=== PATIENT | female | born 1995 | race Caucasian/White ===

== ENCOUNTER 2018-03-27 12:49 | Outpatient (CLI) | payer MEDICAID ==
[~2018-03-27] VITALS: Ht 162.6 cm; Wt 80.6 kg
[2018-03-27 13:09] VITALS: BP 120/59; PULSE 86; RESP 17; Ht 162.6 cm; Wt 80.6 kg
--- NOTE | 2018-03-27 14:02 | PN ---
Triage Information Date/Time Reason for visit: DFM Weeks of Gestation 30 weeks /Para Diabetes: none Hypertention: none Objective Vital Signs Date Temp Pulse Resp B/P (MAP) Pulse Ox O2 O2 Flow FiO2 Time Delivery Rate 03/27/18 98.1 86 17 120/59 13:09 (79) Heart Rate: 130's Heart Rate Comments Reactive Contractions: None Results/Medications Imaging Results BPP 10/13 CHELSEY 16 Disposition: Discharge Assessment/Plan While being monitored patient feels the baby move well. EDWIN ARMENTA MD Mar 27, 2018 14:02
--- NOTE | 2018-03-27 14:02 | TRIAGE ---
OB Triage Datetime Report Generated by CPN: 03/27/2018 14:02 Datetime: 03/27/2018 13:55 Labor Evaluation Pattern: Normal: <= 5 Contractions in 10 Minutes Resting Tone [place]: Relaxed Contraction Comments: no uc Heart Rate FHR Baseline Rate: 135 Monitor Mode: External US Variability: Moderate 6-25 bpm Accelerations: 15X15 Decelerations: None Category: Category I Pain Assessment Pain Presence: None/Denies Pain Type: N/A Datetime: 03/27/2018 13:06 Assessment Type: Triage Time of Arrival: 03/27/2018 12:42 EGA: 30.4 Arrived By: Ambulatory Arrived From: Home Chief Complaint: c/o decreased fm since last night 6pm Movement: Decreased Contractions: Denies/Absent Rupture of Membranes: Denies Vaginal Discharge: Denies Recent Sexual Intercouse: Denies Abdominal Trauma: Not Applicable Patient Complaints: Other Time Provider Notified: 03/27/2018 13:03 Provider Notified: Initial Plan: nst, bpp Maternal Assessment Level of Consciousness: Fully Conscious DTR's/Clonus: DTRs 2+; No Clonus Headache: Denies Blurred Vision: No Respiratory Effort: Unlabored; Regular Rhythm; Equal Expansion Breath Sounds, Left: Clear and Equal Breath Sounds, Right: Clear and Equal Nausea/Vomiting: Denies RUQ Epigastric Pain: Denies Lower Extremities Edema: None Degree: None Upper Extremities Edema: None Degree: None Facial Edema: None Fall Risk Assessment History of Falling: (0) No Secondary Diagnosis: (0) No Ambulatory Aid: (0) Bedrest/Nurse Assist IV Therapy: (0) No Gait: (0) Normal/Bedrest/Immobile Mental Status: (0) Oriented to Own Ability Fall Score: 0 Fall Risk Score Definition: No Risk: No action required
== END 2018-03-27 14:10 | disposition home or self-care (01) ==
LOC: OBT 12:49 → L-D 12:51 → OBT 14:10
PROVIDERS: ATTEND Obstetrics & Gynecology
DX: O36.8130 Decreased fetal movements, third trimester, not applicable or unspecified (principal); Z3A.30 30 weeks gestation of pregnancy
CPT/HCPCS: 76818; G0463

== ENCOUNTER 2018-05-24 20:01 | Inpatient (IN) | payer MEDICAID ==
[~2018-05-24] VITALS: Ht 163.8 cm; Wt 86.1 kg
[2018-05-25] MEDS ORDERED: LACTATED RINGER'S 1,000 ML IV PRN (00:38)
[2018-05-25] MEDS ORDERED: OXYTOCIN 30 UNITS/LR 500 ML IV PRN (01:00)
[2018-05-25] MEDS ORDERED: IBUPROFEN 600 MG TAB PO PRN (01:00)
[2018-05-25] MEDS ORDERED: BUTORPHANOL 2 MG INJ IV PRN (01:00)
[2018-05-25] MEDS ORDERED: LIDOCAINE 1% (MPF) 30 ML INJ INJ PRN (01:00)
[2018-05-25] MEDS ORDERED: AMPICILLIN 2 GM/NS (PMX) 100 ML IV ONE (01:00)
[2018-05-25] MEDS ORDERED: MISOPROSTOL 200 MCG TAB PR PRN (01:00)
[2018-05-25] MEDS ORDERED: METHYLERGONOVINE 0.2 MG INJ IM PRN (01:00)
[2018-05-25] MEDS ORDERED: OXYTOCIN 30 UNITS/LR 500 ML IV SCH ×2 (01:00)
[2018-05-25] MEDS ORDERED: BUTORPHANOL 1 MG INJ IV PRN (01:00)
[2018-05-25] MEDS ORDERED: CARBOPROST 250 MCG INJ IM PRN (01:00)
[2018-05-25] MEDS ORDERED: MISOPROSTOL 50 MCG CAPSULE VAG ONE (01:00)
[2018-05-25 01:27] VITALS: BP 118/62; PULSE 86; RESP 18; Ht 163.8 cm; Wt 86.1 kg
[2018-05-25] MEDS: LACTATED RINGER'S 1,000 ML IV SCH ×3 (01:32→19:58)
[2018-05-25] MEDS ORDERED: FER325 PO (02:59)
[2018-05-25] MEDS ORDERED: PREN1TAB13 PO (02:59)
[2018-05-25] MEDS ORDERED: CITRACAL PO (02:59)
[2018-05-25] MEDS: MISOPROSTOL 50 MCG CAPSULE PO PRN ×4 (03:44→20:59)
[2018-05-25] MEDS: AMPICILLIN 1 GM/NS (PMX) 50 ML IV SCH ×5 (06:29→22:37)
--- NOTE | 2018-05-25 10:01 | HP ---
Date/Time of Note Date/Time of Note DATE: 05/25/18 TIME: 09:58 OB - History Hx of Present Chief Complaint: leakage of fluid Estimated Due Date: Jun 01, 2018 : 1 Para: 0 Spontaneous : 0 Therapeutic : 0 Care: Good Care Ultrasounds: Abnormal US findings Abnormal Ultrasound Findings: lung mass Obstetrical Complications: None Medical Complications: None Past Family/Social History * Past Medical, Surgical, Family and Obstetric Histories reviewed from chart. GBS Status: Negative OB Admission Exam Vital Signs Vital Signs Vital Signs Date Temp Pulse Resp B/P (MAP) Pulse Ox O2 O2 Flow FiO2 Time Delivery Rate 05/25/18 98.0 86 18 118/62 Room Air 01:27 (80) Physical Exam HEENT: WNL Heart: Rhythm Normal Lungs: Clear, Equal Abdomen: WNL Extremities: Normal Reflexes: Normal Cervical Dilatation: None Effacement: 50% Station: -2 Membranes: Ruptured Amniotic Fluid: Clear Heart Rate: 120's Accelerations: Accelerations Present Decelerations: No Decelerations Varibility: Moderate Last 72 hours Lab Results CBC & BMP 05/25/18 01:15 OB Assessment/Plan Reason for admission: rupture of membranes Plan: Induction Induction Method: per Misoprostol Protocol Other plan: Case discussed with Dr Goins ([facility]) who recommends to offer the patient a trial of labor. EDWIN ARMENTA MD May 25, 2018 10:01
[2018-05-26] MEDS: MISOPROSTOL 50 MCG CAPSULE PO PRN ×2 (00:59→05:16)
[2018-05-26] MEDS: AMPICILLIN 1 GM/NS (PMX) 50 ML IV SCH ×3 (02:18→09:53)
[2018-05-26] MEDS: LACTATED RINGER'S 1,000 ML IV SCH ×2 (05:09→12:38)
[2018-05-26] MEDS ORDERED: OXYTOCIN 30 UNITS/LR 500 ML BAG IV ONE (07:00)
[2018-05-26] MEDS ORDERED: OXYTOCIN 30 UNITS/LR 500 ML IV SCH ×2 (10:30→17:59)
[2018-05-26] MEDS ORDERED: CEFAZOLIN 2 GM/50 ML (PMX) 50 ML IVPB SCH (10:30)
[2018-05-26] MEDS ORDERED: ONDANSETRON 4 MG INJ IV STA (12:28)
[2018-05-26] MEDS ORDERED: CITRIC ACID/NA CITRATE 30 ML CUP PO ONE (12:30)
--- NOTE | 2018-05-26 12:33 | PREAC ---
Date/Time of Note Date/Time of Note DATE: 05/26/18 TIME: 12:32 Anesthesia Eval and Record Evaluation Time Pre-Procedure Interview DATE: 05/26/18 TIME: 12:32 Age 23 Sex female NPO: 8 hrs Preoperative diagnosis Failed Induction Planned procedure Past Medical History Past Medical History: Includes Heme: Anemia : : (1), Para: (0), Gestational age: (39), Other (Macrosomia, possioble babay has a lung mass) Surgery & Anesthesia Issues No known issue Meds Anticoagulation: No Beta Elly within 24 hr: No Reason Beta Elly not given: Pt. not on B-Elly Reported Medications Calcium Citrate* (Citracal*) 950 Mg Tab, 950 MG PO DAILY, TAB 05/25/18 Ferrous Sulfate* (Ferrous Sulfate*) 325 Mg Tabec, 325 MG PO DAILY, TAB 05/25/18 Pnv95/Ferrous Fumarate/FA ( Vitamins Tablet) 1 Each Tablet, 1 EACH PO, TAB 05/25/18 Current Medications Lactated Ringer's 1,000 ml @ 125 mls/hr Q8H IV Last administered on 05/26/18at 05:09; Admin Dose 125 MLS/HR; Start 05/25/18 at 00:38 Ampicillin 50 ml @ 100 mls/hr Q4H IV Last administered on 05/26/18at 09:53; Admin Dose 100 MLS/HR; Start 05/25/18 at 05:00 Butorphanol Tartrate (Stadol) 1 mg Q2H PRN IV .PAIN; Start 05/25/18 at 01:00 Butorphanol Tartrate (Stadol) 2 mg Q2H PRN IV .PAIN; Start 05/25/18 at 01:00 Lidocaine (Xylocaine 1% (Mpf)) 30 ml ONCE PRN INJ .EPISIOTOMY; Start 05/25/18 at 01:00 Oxytocin/Lactated Ringer's 500 ml @ 500 mls/hr ONCE POST IV ; Start 05/07 at 01:00 Oxytocin/Lactated Ringer's 500 ml @ 125 mls/hr POST IV ; Start 05/25/18 at 01:00 Ibuprofen (Motrin) 600 mg ONCE PRN PO .PAIN 1-5; Start 05/25/18 at 01:00 Lactated Ringer's 1,000 ml @ 2,000 mls/hr Q30M PRN IV .ANESTHESIA; Start 05/25/18 at 00:38 Oxytocin/Lactated Ringer's 500 ml @ 0 mls/hr ONCE PRN IV .VAGINAL BLEEDING; Start 05/25/18 at 01:00 Methylergonovine Maleate (Methergine) 0.2 mg ONCE PRN IM .VAGINAL BLEEDING; Start 05/25/18 at 01:00 Carboprost Tromethamine (Hemabate) 250 mcg ONCE PRN IM .VAGINAL BLEEDING; Start 05/25/18 at 01:00 Misoprostol (Cytotec) 1,000 mcg ONCE PRN AR .VAGINAL BLEEDING; Start 05/25/18 at 01:00 Misoprostol (Cytotec 50 Mcg Capsule) 50 mcg Q4H PRN PO LABOR INDUCTION Last administered on 05/26/18at 05:16; Admin Dose 50 MCG; Start 05/25/18 at 01:00 Cefazolin Sodium/ Dextrose 50 ml @ 100 mls/hr ONCE IVPB ; Start 05/26/18 at 10:30 Oxytocin/Lactated Ringer's 500 ml @ 125 mls/hr POST IV ; Start 05/26/18 at 10:30 Meds reviewed: Yes Allergies Coded Allergies: No Known Allergy (Unverified , 03/27/18) Allergies Reviewed: Yes Labs/Studies Labs Reviewed: Reviewed by anesthesiologist Result Diagram: 05/25/18 0115 test: Positive Studies: ECG (n/a), CXR (n/a) Pre-procedure Exam Last vitals Vital Signs Date Temp Pulse Resp B/P (MAP) Pulse Ox O2 O2 Flow FiO2 Time Delivery Rate 05/25/18 98.0 86 18 118/62 Room Air 01:27 (80) Airway: Adequate mouth opening, Adequate thyromental dist Mallampati: Mallampati II Teeth: Normal Lung: Normal Heart: Normal ASA Physical Status ASA physical status: 2 Emergency: None Planned Anesthetic Neuraxial: Spinal Planned Pain Management Sub-arachniod narcotics, Parenteral pain med Pre-operative Attestations Prior to commencing anesthesia and surgery, the patient was re-evaluated, there was verification of: *The patient's identity *The results of appropriate recent lab work and preoperative vital signs *The above evaluation not changing prior to induction *Anesthetic plan, risk benefits, alternative and complications discussed with patient/family; questions answered; patient/family understands, accepts and wishes to proceed. SHELLY CASTELLON MD May 26, 2018 12:33
--- NOTE | 2018-05-26 13:24 | QN ---
Documentation Comment Oatient has received 6 doses of Cyttoec for induction of labor. Cervix is closed and unfavorable. Patient is for delivery by primary . Risks, benefits and alternatives were explained to the patient who stated she understood and gave informed consent for the procedure. EDWIN ARMENTA MD May 26, 2018 13:24
[2018-05-26] MEDS ORDERED: OXYTOCIN 10 UNIT INJ ONE (13:26)
[2018-05-26] MEDS ORDERED: morphine SULFATE/PF (10 MG/10 ML) INJ ONE (13:26)
[2018-05-26] MEDS ORDERED: PHENYLephrine (100 MCG/ML) 10ML SYG ONE (13:26)
[2018-05-26] MEDS ORDERED: AZITHROMYCIN 500MG/NS (PMX) 250 ML IVPB ONE (13:30)
[2018-05-26] MEDS ORDERED: DEXAMETHASONE 4 MG/ML 1 ML INJ ONE (14:00)
[2018-05-26] MEDS ORDERED: KETOROLAC 30 MG INJ ONE (14:00)
[2018-05-26] MEDS ORDERED: METOCLOPRAMIDE 10 MG INJ ONE (14:00)
--- NOTE | 2018-05-26 14:23 | PAC ---
Date/Time of Note Date/Time of Note DATE: 05/26/18 TIME: 14:23 Post-Anesthesia Notes Post-Anesthesia Note Last documented vital signs Vital Signs Date Temp Pulse Resp B/P (MAP) Pulse Ox O2 O2 Flow FiO2 Time Delivery Rate 05/25/18 98.0 86 18 118/62 98 Room Air 14:30 (80) Activity: WNL Respiratory function: WNL Cardiovascular function: WNL Mental status: Baseline Pain reasonably controlled: Yes Hydration appropriate: Yes Nausea/Vomiting absent: Yes SHELLY CASTELLON MD May 26, 2018 14:23
[2018-05-26] MEDS ORDERED: NALBUPHINE HCL (10 MG/1 ML) INJ IV PRN (14:30)
[2018-05-26] MEDS ORDERED: ONDANSETRON 4 MG INJ IV PRN (14:30)
[2018-05-26] MEDS ORDERED: ACETAMINOPHEN 500 MG TAB PO PRN (14:30)
[2018-05-26] MEDS ORDERED: HYDROmorphONE 0.5 MG/0.5 ML SYG IV PRN ×2 (14:30)
[2018-05-26] MEDS ORDERED: HYDROCODONE/APAP (5/325) TAB PO PRN (14:30)
[2018-05-26] MEDS ORDERED: KETOROLAC 30 MG INJ IV PRN (14:30)
[2018-05-26] MEDS ORDERED: morphine 2 MG INJ IV PRN ×2 (14:30)
[2018-05-26] MEDS ORDERED: DIPHENHYDRAMINE 50 MG INJ IV PRN (14:30)
[2018-05-26] MEDS ORDERED: NALOXONE (0.4 MG/ML) INJ IV PRN (14:30)
--- NOTE | 2018-05-26 14:50 | OPR ---
Operative Report Planned Procedure Procedure date May 26, 2018 Procedure(s) Primary low transverse Performed by Edwin Armenta MD Doughnut Icer: SANIA WALDROP MD Anesthesiologist: SHELLY CASTELLON MD Pre-procedure diagnosis Term , failed induction of labor [id number] Anesthesia Type: Hypbl6t spinal Post-Procedure Post-procedure diagnosis Same Findings Live Baby, Apgars 8 and 9 Estimated Blood Loss: other (700 ml) Specimen(s) Placenta Grafts/Implant(s) none Complication(s) none Pt Condition post procedure: stable Disposition: PACU Procedure Description After spinal anesthesia had been dosed and tested, the patient was placed supine on the Operating Room table and prepped and draped in the usual sterile fashion for a section. A Pfannenstiel incision was made through the abdomen and carried down to the level of the fascia. The fascia was incised transversely and then the rectus muscle was dissected off the fascia and split bluntly in the midline. The peritoneum was the entered bluntly. The bladder flap was created and then a low segment transverse incision was made with a knife on the uterus until the amniotic fluid was encountered. The incision was widened with bandage scissors. A hand was inserted elevating the vertex and then the head delivered with assistance of fundal pressure.. The nares and oropharynx were bulb suctioned, and the remainder of the infant was delivered out of the maternal abdomen. . The cord was doubly clamped and cut, and the infant handed off to the awaiting resuscitation team including the screen cutter and trimmer who was present for delivery. The placenta was then manually extracted and the interior uterus was cleaned with a dry lap sponge. The uterus was exteriorized, and the incision of the uterus closed with a running interlocking stitch of Monocryl suture. The uterus was replaced in the maternal abdomen. The abdomen was cleared of clots. The fascia was closed with a running suture of #1 Vicryl suture meeting in the midline. The subcutaneous tissue was made hemostatic with Bovie cautery, and the skin approximated using rene. The patient tolerated the procedure well. All sponge and instrument counts were correct. She was taken to the recovery room in stable condition. EDWIN ARMENTA MD May 26, 2018 14:49
[2018-05-26 17:45] VITALS: BP 121/82; PULSE 85; RESP 18
[2018-05-26] MEDS ORDERED: LACTATED RINGER'S 1,000 ML IV SCH (17:59)
[2018-05-26] MEDS ORDERED: OXYCODONE/ACETAMINOPHEN (5/325) TAB PO PRN ×2 (18:00)
[2018-05-26] MEDS ORDERED: CARBOPROST 250 MCG INJ IM PRN (18:00)
[2018-05-26] MEDS ORDERED: LANOLIN HPA 1 PKT TOP PRN (18:00)
[2018-05-26] MEDS ORDERED: OXYTOCIN 30 UNITS/LR 500 ML IV PRN (18:00)
[2018-05-26] MEDS ORDERED: MISOPROSTOL 200 MCG TAB PR PRN (18:00)
[2018-05-26] MEDS ORDERED: METHYLERGONOVINE 0.2 MG INJ IM PRN (18:00)
[2018-05-26 18:33] VITALS: BP 120/84; PULSE 82; RESP 18
[2018-05-26 19:35] VITALS: BP 129/75; PULSE 83; RESP 19
[2018-05-26] MEDS: SENNA/DOCUSATE NA (8.6MG/50MG) TAB PO SCH (21:37)
[2018-05-26 23:35] VITALS: BP 102/56; PULSE 86; RESP 18
[2018-05-27 03:35] VITALS: BP 110/55; PULSE 82; RESP 19
[2018-05-27] MEDS: LACTATED RINGER'S 1,000 ML IV SCH ×3 (04:41→19:35)
[2018-05-27 08:50] VITALS: BP 107/52; PULSE 92; RESP 18
[2018-05-27] MEDS: SENNA/DOCUSATE NA (8.6MG/50MG) TAB PO SCH ×2 (09:00→21:00)
[2018-05-27] MEDS ORDERED: INFLUENZA VIRUS VACCINE 0.5 ML (DISPENSING) IM* ONE (09:00)
--- NOTE | 2018-05-27 13:52 | QN ---
Documentation Comment No complaint Afebrile VSS Abdomen soft ND POD #1 Stable Ambulate Advance diet EDWIN ARMENTA MD May 27, 2018 13:52
[2018-05-27] MEDS: IBUPROFEN 800 MG TAB PO SCH ×2 (14:33→21:49)
[2018-05-27 20:20] VITALS: BP 102/58; PULSE 81; RESP 19
[2018-05-28] MEDS: LACTATED RINGER'S 1,000 ML IV SCH ×3 (02:30→18:30)
[2018-05-28 03:30] VITALS: BP 104/60; PULSE 71; RESP 19
[2018-05-28] MEDS: IBUPROFEN 800 MG TAB PO SCH ×3 (05:29→21:38)
[2018-05-28 08:00] VITALS: BP 100/58; RESP 18
[2018-05-28] MEDS: SENNA/DOCUSATE NA (8.6MG/50MG) TAB PO SCH ×2 (09:00→20:46)
[2018-05-28] MEDS ORDERED: INFLUENZA VIRUS VACCINE 0.5 ML (DISPENSING) IM* ONE (10:00)
[2018-05-28 16:00] VITALS: BP 114/59; PULSE 78; RESP 18
--- NOTE | 2018-05-28 17:11 | QN ---
Documentation Comment No complaint afebrile VSS Abdomen soft Stable Continue present care. EDWIN ARMENTA MD May 28, 2018 17:11
[2018-05-28 20:30] VITALS: BP 114/58; PULSE 80; RESP 17
[2018-05-29 04:00] VITALS: BP 128/73; PULSE 73; RESP 20
[2018-05-29] MEDS: IBUPROFEN 800 MG TAB PO SCH ×3 (05:35→21:12)
[2018-05-29 08:00] VITALS: BP 122/65; PULSE 73; RESP 18
[2018-05-29] MEDS: SENNA/DOCUSATE NA (8.6MG/50MG) TAB PO SCH ×2 (09:00→21:00)
[2018-05-29] MEDS ORDERED: DIPHTH/TET/ACEL PERTUSS (ADULT) 0.5 ML VIAL IM* ONE (09:00)
[2018-05-29 16:39] VITALS: BP 119/64; PULSE 77; RESP 18
--- NOTE | 2018-05-29 16:40 | QN ---
Documentation Comment No complaint Afebrile VSS Abdomen soft Stable Continue present care. EDWIN ARMENTA MD May 29, 2018 16:40
[2018-05-29 20:00] VITALS: BP 122/73; PULSE 68; RESP 21
[2018-05-30 03:30] VITALS: BP 120/69; PULSE 79; RESP 21
[2018-05-30] MEDS: IBUPROFEN 800 MG TAB PO SCH (05:32)
[2018-05-30 08:30] VITALS: BP 129/72; PULSE 79; RESP 20
[2018-05-30] MEDS: SENNA/DOCUSATE NA (8.6MG/50MG) TAB PO SCH (09:00)
--- NOTE | 2018-05-31 10:10 | DELSUM ---
Delivery Summary A-C Datetime Report Generated by CPN: 05/31/2018 10:10 DELIVERY PERSONNEL [employer] Director: Duvo, Florencia MATERNAL INFORMATION Delivery Anesthesia: Spinal Medications in Delivery: see anesthesia record Delivery QBL (ml): 700 Placenta Cultured: No Maternal Complications: Other RN Comments: PER PT SHE'S BEEN SEEN AT PERINATOLOGY CLINIC FOR LEFT LUNG MASS Biazzi Nitrator Operator Dr. crespo present during delivery LABOR SUMMARY EDC: 06/01/2018 00:00 No. Babies in Womb: 0 Attempted: No Labor Anesthesia: None LABOR INFORMATION Reason for Induction: PROM Cervical Ripening Agents: Cytotec @ Oxytocin: N/A Group B Beta Strep: Negative Antibiotics # of Doses: amp X9; Ancef x1; Zithromax X1 Antibiotics Time of Last Dose: 05/26/2018 13:42 Steroids Given: None Reason Steroids Not Administered: Not Applicable MEMBRANES Membranes Rupture Method: Spontaneous Rupture of Membranes: 05/24/2018 11:00 Length of Rupture (hr): 50.92 Amniotic Fluid Color: Clear Amniotic Fluid Amount: Scant Amniotic Fluid Odor: None STAGES OF LABOR Stage 3 hr: 0 Stage 3 min: 1 CSECTION DELIVERY Primary Indication: Failed Induction Secondary Indication: N/A CSection Urgency: Non Elective CSection Incidence: Primary Labor: Labor Elective: Nonelective CSection Incision: Lower Uterine Transverse BABY A INFORMATION Infant Delivery Date/Time: 05/26/2018 13:55 Method of Delivery: Born in Route : No : N/A Forceps: N/A Vacuum Extraction: Successful Shoulder Dystocia : No ASSISTED DELIVERY BABY A Catheter Prior to Procedure: Yes Vacuum Number of Pulls: 1 Vacuum Number of PopOffs: 0 Vacuum Hospital Staff Pharmacist: [employer] Total Time Vacuum Applied: 16 SECONDS Vacuum/Forceps Comment: MD PRESSURE CONTROLLED SHOULDER DYSTOCIA BABY A Infant Delivery Date/Time: 05/26/2018 13:55 PRESENTATION/POSITION BABY A Presentation: Cephalic Cephalic Presentation: Vertex Vertex Position: Left Occipital Anterior Breech Presentation: N/A PLACENTA INFORMATION BABY A Placenta Delivery Time : 05/26/2018 13:56 Placenta Method of Delivery: Manual Removal Placenta Status: Delivered SCORES BABY A Heart Rate 1 min: >100 bpm Resp Effort 1 min: Good Cry Reflex Irritability 1 min: Cough/Sneeze/Pulls Away Muscle Tone 1 min: Active Motion Color 1 min: Blue/Pale Resuscitation Effort 1 min: Tactile Stimulation; Oxygen; PPV/NCPAP SCORE 1 MIN: 8 Heart Rate 5 min: >100 bpm Resp Effort 5 min: Good Cry Reflex Irritability 5 min: Cough/Sneeze/Pulls Away Muscle Tone 5 min: Active Motion Color 5 min: Body [place], Extremit Blue Resuscitation Effort 5 min: Tactile Stimulation; Oxygen SCORE 5 MIN: 9 INFORMATION BABY A Gestational Age at Delivery: 39.1 Gestational Status: Full Term- 39- 40.6 Weeks Outcome : Liveborn Condition : Stable Infant Sex: Male IDENTIFICATION/MEDS BABY A ID Band Number: [id number] ID Band Location: Right Leg; Left Arm Sensor Applied: No Sensor Number: [id number] Vitamin K Given : Not Given Erythromycin Given: Not Given WEIGHT/LENGTH BABY A Birthweight (gm): 3955 Infant Weight (lb): 8 Weight (oz): 12 Length (in): 21.00 Infant Length (cm): 53.34 CORD INFORMATION BABY A No. Cord Vessels: 3 Nuchal Cord : N/A Cord Blood Taken: Yes Suction: Mouth; Nose ASSESSMENT BABY A Infant Complications: None Physical Findings at Delivery: Within Normal Limits Physical Findings- Other: scalp intact Infant Respirations: Appears Normal Biazzi Nitrator Operator/ALS Called : Yes Care By: Osvaldo HERNANDEZ Transferred To: NICU
--- NOTE | 2018-05-31 23:05 | DS ---
Date/Time of Note Date/Time of Note DATE: 05/31/18 TIME: 23:02 Obstetrical Discharge Record Final Diagnosis Final Diagnosis: Term delivered Section Section: Primary Primary Indication Failed induction Complications Induction: Yes Condition on Discharge Physical Assessment Voiding: Yes Bowel Movement: Yes Breast: Soft, non-tender, Filling Fundus: Firm Abdomen and Incision: Incision intact Calf Tenderness: No Patient Condition: Stable EDWIN ARMENTA MD May 31, 2018 23:05
== END 2018-05-30 09:45 | disposition home or self-care (01) | DRG 788 ==
LOC: OBT 20:01 → L-D 20:05 → OBT 23:30 → L-D 23:30 → MS1 05-26 17:47 → PP1 05-29 17:48
PROVIDERS: ADMIT Obstetrics & Gynecology; ATTEND Obstetrics & Gynecology
PROC: 10D00Z1 Extraction of Products of Conception, Low, Open Approach (ICD-10-PCS; principal; 2018-05-26 12:30)
DX: O62.0 Primary inadequate contractions (principal); Z3A.39 39 weeks gestation of pregnancy; Z37.0 Single live birth
CPT/HCPCS: 76818; 80307; 81001; 85025; 85610; 85730; 86592; 86850; 86900; 86901; 87340; 90686; 90715; 99464; G0463; J0290; J0456; J1100; J1885; J2210; J2274; J2370; J2405; J2590; J2765; J7120